=== PATIENT | male | born 1935 | race Caucasian/White ===

== ENCOUNTER 2018-09-10 11:50 | Observation (INO) | payer MEDICARE, OTHER ==
[~2018-09-10] VITALS: Ht 188 cm; Wt 105.4 kg
[~2018-09-10 11:50] MED LIST: ASPIRIN 81M81 MG/TA2 PO; ELIQUIS 2.5 PO; LIPITOR20 MG PO; LOPRESSOR 225 MG/TAB PO; PRINIVIL20 MG PO
[2018-09-10 12:28] LABS: COLLECTION METHOD CLEAN CATCH
[2018-09-10 12:31] LABS: BASO % 0.7 % (0.0-2.0); EOS # 0.1 (0.0-0.7); GRAN # 3.7 (1.4-6.5); GRAN % 60.5 % (42.2-75.2); HEMATOCRIT 46.8 % (42.0-52.0); LYMPH # 1.6 (1.2-3.4); LYMPH % 26.1 % (20.0-51.0); MEAN CELL VOLUME 89 fl (80.0-100.0); MEAN CORPUSCULAR HEMOGLOBIN 30 pg (27.0-31.0); MEAN CORPUSCULAR HGB CONC 34 g/dl (33.0-37.0); MEAN PLATELET VOLUME 9.8 fl (7.4-10.4); MONO # 0.6 (0.1-0.6); MONO % 10.5 % (1.7-9.3); PLATELET COUNT 233 K/mm3 (130-400); RED BLOOD COUNT 5.26 M/mm3 (4.20-5.60); REDCELL DISTRIBUTION WIDTH-CV 12.8 % (11.5-14.5)
[2018-09-10 12:33] LABS: PH 6 (5-8); SQUAMOUS EPITHELIAL None Seen /hpf; URINE APPEARANCE Clear; URINE BACTERIA None Seen /hpf; URINE BILIRUBIN Negative (NEGATIVE); URINE BLOOD Negative (NEGATIVE); URINE COLOR Yellow; URINE GLUCOSE Negative (NEGATIVE); URINE KETONE Negative (NEGATIVE); URINE LEUKOCYTE ESTERASE Negative (NEGATIVE); URINE NITRATE Negative (NEGATIVE); URINE PROTEIN(semi-quant) Negative (NEGATIVE); URINE RBC 0-2 /hpf; URINE UROBILINOGEN Negative (NEGATIVE)
[2018-09-10 12:47] LABS: ALBUMIN 4.1 gm/dL (3.5-5.0); BILIRUBIN,TOTAL 1.2 mg/dL (0.0-1.0); C-REACTIVE PROTEIN 0.6 mg/dL (0.0-0.9); CALCIUM 9.2 mg/dL (8.4-10.2); CREATININE, serum 1.15 (0.66-1.25); POTASSIUM 4.3 mmol/L (3.4-5.0); TOTAL PROTEIN 7.3 gm/dL (6.4-8.2)
--- NOTE | 2018-09-10 15:35 | NUR ---
RECEIVED REPORT FROM DONNY ARRIAGA.
[2018-09-10 16:00] VITALS: BP 141/85; PULSE 60; TEMP 97
--- NOTE | 2018-09-10 16:03 | NUR ---
pt arrived to room 314.accompanied by family.Dr. Espinoza rounding on pt at this time.
[2018-09-10 16:51] VITALS: BP 144/85; PULSE 60; TEMP 97
--- NOTE | 2018-09-10 18:39 | NUR ---
Assessment complete.patient awake,a/ox3.denies pain or discomfort at this time.LSCTA.breathing even and unlabored.VSS.hernia noted to left grion.pt states is chronic and he it has never borthered him.denies any dizziness at this time.will continue to monitor.call light in reach
--- NOTE | 2018-09-10 19:36 | NUR ---
REPORT GIVEN TO DONNY KAPADIA.
[2018-09-10 21:06] VITALS: BP 129/97; PULSE 60; TEMP 97.5
--- NOTE | 2018-09-10 21:15 | NUR ---
Initial shift assessment- very pleasant, denies pain, denies any problems-- no dizziness, states has been totally fine since this morning,, Tele, Iv fluids of NS at 100cc/hr
[2018-09-11] VITALS: BP 115/58; PULSE 83; TEMP 97.3
[2018-09-11 00:37] VITALS: BP 117/75; PULSE 60; TEMP 98.4
[2018-09-11 03:16] VITALS: BP 119/71; PULSE 62; TEMP 98.2
--- NOTE | 2018-09-11 06:50 | NUR ---
Quiet night- no requests, VSS, no syncope, no dizziness- states I feel fine
[2018-09-11 07:05] VITALS: BP 122/74; PULSE 57; TEMP 98.6
--- NOTE | 2018-09-11 08:07 | NUR ---
Resting in bed at this time. No pain or needs reported and the call light is in place. Assisted with ordering breakfast at this time.
[2018-09-11] MEDS ORDERED: SENNA-LAX8.6 MG PO (09:38)
--- NOTE | 2018-09-11 12:18 | NUR ---
Patient reports that he is wanting to return home in [place] with his family. Patient indicated that he uses the [facility] near [place] to obtain medications. Patient reports that his DTR is going to transport him home. Patient denies having any ADV-Dirs/ PCP is reported as Dr. Croft. No additonal needs identified. Patient indicated that he will follow-up with the PCP. No medication concerns and no DME's at home. Patient reports being completely independent and active.
--- NOTE | 2018-09-11 12:49 | NUR ---
Discharge education completed with the patient an then escorted out via ambulation. INT removed without difficulty. Family here to worm picker the patient from [place] the caf[facility]ia.
== END 2018-09-11 12:51 | disposition home or self-care (01) ==
LOC: COL.ER 11:50 → MEDICAL 14:50
PROVIDERS: Family Medicine; ADMIT Hospitalist
DX: R55 Syncope and collapse (principal); K59.00 Constipation, unspecified; K40.90 Unilateral inguinal hernia, without obstruction or gangrene, not specified as recurrent; I48.91 Unspecified atrial fibrillation; I10 Essential (primary) hypertension; E78.5 Hyperlipidemia, unspecified; Z79.82 Long term (current) use of aspirin; Z88.8 Allergy status to other drugs, medicaments and biological substances; Z79.01 Long term (current) use of anticoagulants
CPT/HCPCS: G0378; J2405; J7030; J7120

== ENCOUNTER 2018-09-29 05:32 | Day surgery (SDC) | payer MEDICARE, OTHER ==
[~2018-09-29] VITALS: Ht 188 cm; Wt 104.7 kg
[~2018-09-29 05:32] MED LIST changes: +SENNA-LAX8.6 MG PO
[2018-09-29 06:20] VITALS: BP 131/88; PULSE 67; TEMP 97.8
[2018-09-29] MEDS ORDERED: LIPITOR 40MG TA40 MG PO (06:25)
[2018-09-29] MEDS ORDERED: ELIQUIS 2.5 PO (06:26)
[2018-09-29 09:03] VITALS: BP 89/58; PULSE 59
--- NOTE | 2018-09-29 09:03 | NUR ---
Patient returns to room 7 per cart from surgery and arouses to verbal stimuli. Temp 97.8 and room air sats 94%. IV fluids infusing and site is free of redness. Dressing dry and intact on the left inguinal area. Siderails up x2 and call light in reach. Family in room. Allowed to sleep.
[2018-09-29] MEDS ORDERED: NORCO 325 MG-51 TAB PO (09:11)
[2018-09-29 09:18] VITALS: BP 99/63; PULSE 56
--- NOTE | 2018-09-29 09:18 | NUR ---
Becoming more awake. IV fluids infusing. Left inguinal dressing dry.
[2018-09-29 09:33] VITALS: BP 101/72; PULSE 54
--- NOTE | 2018-09-29 09:33 | NUR ---
Awake and sipping on water and coffee. Family in room.
[2018-09-29 09:48] VITALS: BP 116/77; PULSE 51
--- NOTE | 2018-09-29 09:48 | NUR ---
Continues to sip on water and coffee.
[2018-09-29 10:03] VITALS: BP 116/77; PULSE 51
--- NOTE | 2018-09-29 10:03 | NUR ---
Sitting up and talking with family. Eating muffin. Denies pain when asked.
--- NOTE | 2018-09-29 10:30 | NUR ---
IV converted to INT while eating and drinking.
--- NOTE | 2018-09-29 10:45 | NUR ---
Assisted up to the bathroom and is able to void and returns to room. Gait steady. Again denies pain when asked. INT discontinued.
--- NOTE | 2018-09-29 10:50 | NUR ---
Patient dresses self. Spouse in room and left inguinal dressing dry and clean.
--- NOTE | 2018-09-29 11:01 | NUR ---
Given dismissal instructions and voices understanding of home cares and follow up as scheduled. Provided script for Quentin and office number for questions and concerns.
--- NOTE | 2018-09-29 11:10 | NUR ---
Patient dismissed to home per private vehicle driven by spouse and taken to the front door per wheelchair and assisted into car with instructions in hand.
== END 2018-09-29 11:10 | disposition home or self-care (01) ==
LOC: SDCO 05:32
DX: K40.90 Unilateral inguinal hernia, without obstruction or gangrene, not specified as recurrent (principal); I10 Essential (primary) hypertension; E78.5 Hyperlipidemia, unspecified; I25.2 Old myocardial infarction; I48.2 Chronic atrial fibrillation; I25.10 Atherosclerotic heart disease of native coronary artery without angina pectoris; Z88.8 Allergy status to other drugs, medicaments and biological substances; Z79.82 Long term (current) use of aspirin; Z79.01 Long term (current) use of anticoagulants; Z95.1 Presence of aortocoronary bypass graft; Z86.73 Personal history of transient ischemic attack (TIA), and cerebral infarction without residual deficits
CPT/HCPCS: C1781; J0690; J2704; J3010; J7120

== ENCOUNTER 2020-06-05 11:24 | Emergency (ER) | payer MEDICARE, OTHER ==
[~2020-06-05] VITALS: Ht 185.4 cm; Wt 109.1 kg
[~2020-06-05 11:24] MED LIST changes: +LIPITOR 40MG TA40 MG PO; +NORCO 325 MG-51 TAB PO
[2020-06-05 11:33] VITALS: TEMP 97.9
[2020-06-05 12:22] LABS: BASO % 0.5 % (0.0-2.0); EOS # 0.1 (0.0-0.7); EOS % 0.6 % (0-4.0); GRAN # 6.2 (1.4-6.5); HEMATOCRIT 45.7 % (42.0-52.0); HEMOGLOBIN 15.4 g/dl (13.5-18.0); LYMPH % 12.4 % (20.0-51.0); MEAN CELL VOLUME 91 fl (80.0-100.0); MEAN CORPUSCULAR HEMOGLOBIN 31 pg (27.0-31.0); MEAN CORPUSCULAR HGB CONC 34 g/dl (33.0-37.0); MEAN PLATELET VOLUME 10.5 fl (7.4-10.4); MONO # 0.6 (0.1-0.6); PLATELET COUNT 238 K/mm3 (130-400); RED BLOOD COUNT 5.04 M/mm3 (4.20-5.60); REDCELL DISTRIBUTION WIDTH-CV 12.5 % (11.5-14.5)
[2020-06-05 12:24] LABS: PROTHROMBIN TIME 11.6 SECONDS (9.7-12.8)
[2020-06-05 12:27] LABS: ALANINE AMINOTRANSFERASE 61 U/L (4-49); ALBUMIN 4.1 gm/dL (3.5-5.0); ALKALINE PHOSPHATASE 99 U/L (50-136); ANION GAP 8 mmol/L (7-16); AST,SGOT 109 U/L (15-37); BLOOD UREA NITROGEN 16 mg/dL (9-20); CALCIUM 8.7 mg/dL (8.4-10.2); CARBON DIOXIDE 27 mmol/L (22-30); CHLORIDE 102 mmol/L (98-107); CREATININE, serum 1.27 (0.66-1.25); GLUCOSE 141 mg/dL (74-106); LIPASE 135 U/L (23-300); PARTIAL THROMBOPLASTIN TIME 34.1 SECONDS (26.0-37.0); POTASSIUM 4.3 mmol/L (3.4-5.0); SODIUM 136 mmol/L (137-145); TOTAL PROTEIN 7.2 gm/dL (6.4-8.2)
[2020-06-05 12:45] LABS: TROPONIN-I < 0.012 ng/mL (0.000-0.035)
[2020-06-05 15:58] VITALS: BP 150/101; PULSE 101
== END 2020-06-05 15:58 | disposition home or self-care (01) ==
LOC: COL.ER 11:24
PROVIDERS: Emergency Medicine
DX: R07.9 Chest pain, unspecified (principal); Z88.8 Allergy status to other drugs, medicaments and biological substances; Z79.82 Long term (current) use of aspirin; Z79.01 Long term (current) use of anticoagulants